=== PATIENT | male | born 1960 ===

== ENCOUNTER 2020-06-01 12:57 | Inpatient (IN) | payer BC, SELFPAY ==
[2020-06-01] VITALS (9 sets, daily range): BP systolic 171–204; BP diastolic 97–119; PULSE 61–78; RESP 12–21; TEMP 36.3–36.7; O2SAT 98–100
--- NOTE | ~2020-06-01 | XR_ITS ---
EXAMINATION: XR chest 1V portable 06/01/2020 13:25 INDICATION: CVA PROCEDURE: AP view of the chest COMPARISON: No prior studies for comparison. FINDINGS: The lungs are clear. The cardiomediastinal silhouette is within normal limits. There are no pleural effusions. There is no pneumothorax suspected. IMPRESSION: 1: NO ACUTE CARDIOPULMONARY DISEASE. Reviewed, dictated and finalized at location A.
--- NOTE | ~2020-06-01 | CT_ITS ---
EXAMINATION: CT brain wo con DATE: 06/01/2020 13:10 INDICATION: Stroke protocol. Left-sided weakness and dizziness. TECHNIQUE: Computed tomography (CT) of the head was performed without intravenous contrast. Sagittal and coronal reconstructions were performed. The mA was adjusted according to patient size. Iterative reconstruction technique was employed. The dose-length product was 681.00 mGy-cm. COMPARISON: None FINDINGS: Small old lacunar infarct at the right thalamus. No acute intracranial hemorrhage, acute infarction o r abnormal extra axial fluid collection. There is mild scattered white matter hypoattenuation consist ent with chronic small vessel ischemic disease. Ventricles are normal and symmetric. No mass/mass eff ect. The orbits, paranasal sinuses and mastoid air cells are normal. IMPRESSION: 1. Small old lacunar infarct at the right thalamus. No acute intracranial process. Per stroke protoco l Dr. Bruno discussed these findings with Dr. Bangura at 1:14 p.m.. Reviewed, dictated and finalized at location A. IMPRESSION: 1. Small old lacunar infarct at the right thalamus. No acute intracranial proce ss. Per stroke protocol Dr. Bruno discussed these findings with Dr. Bangura at 1:14 p.m..
--- NOTE | ~2020-06-01 | US_ITS ---
EXAMINATION: US venous doppler [facility] DATE: 06/03/2020 12:25 INDICATION: Lower limb pain and swelling TECHNIQUE: Hall scale images without and with compression and Doppler images of the bilateral lower e xtremity veins were obtained. COMPARISON: None FINDINGS: The right common femoral vein, profunda femoral vein, femoral vein, popliteal vein, peroneal trunk, p osterior tibial veins, and greater saphenous vein are patent. The left common femoral vein, profunda femoral vein, femoral vein, popliteal vein, peroneal trunk, po sterior tibial veins, and greater saphenous vein are patent. IMPRESSION: 1. Patent bilateral lower extremity veins. No evidence of deep venous thrombosis. Reviewed, dictated and finalized at location A. IMPRESSION: 1. Patent bilateral lower extremity veins. No evidence of deep venous thrombosi s.
--- NOTE | ~2020-06-01 | MR_ITS ---
EXAMINATION: MR brain/brain stem wo/w con DATE: 06/02/2020 08:24 INDICATION: Left-sided weakness TECHNIQUE: Magnetic resonance imaging (MRI) of the brain and brainstem was performed without and with 18 mL Multihance intravenous contrast. Sequences included sagittal and axial T1-weighted SE, axial d iffusion-weighted FS SE, axial T2*-weighted GRE, axial T2-weighted FLAIR, and axial T2-weighted FSE. Postcontrast axial and coronal T1-weighted SE was obtained. Apparent diffusion coefficient (ADC) maps were created. COMPARISON: CT studies dated 06/01/2020 FINDINGS: Small region of restricted diffusion consistent with acute lacunar infarct centered in the right post erior capsule extending to the immediately adjacent right thalamus and posterior aspect of the lentif orm nucleus. This lies immediately along side an earlier tiny right thalamic old lacunar infarct. The re are a couple additional small old lacunar infarcts at the left thalamus and in the white matter al alana the lateral side of the occipital horn of the left lateral ventricle. Additional equivocal small focus of restricted diffusion equivocal for a second small acute lacunar infarct at the right cerebel lar peduncle. No intracranial hemorrhage or abnormal intracranial mass lesion. There are scattered ar eas of nonspecific increased T2-weighted signal intensity in the cerebral white matter, predominantly involving the deep and periventricular white matter. There are no intraparenchymal signal abnormalit ies seen on the other pulse sequences. The ventricles are symmetric and normal in size. There are no abnormal extra-axial fluid collections. Flow voids are seen in the cerebral arteries on the T2-weight ed sequences consistent with their expected patency. Mucosal thickening in the bilateral ethmoid and maxillary sinuses. Visualized orbits and soft tissues are unremarkable. There are no areas of abnorma l enhancement on the post contrast images. IMPRESSION: 1. Acute infarct at the posterior limb of the right internal capsule and immediately adjacent right l entiform nucleus and thalamus. 2. Equivocal second small acute lacunar infarct at the right cerebellar peduncle. 3. 3 additional old lacunar infarcts in the bilateral thalami and left parietal periventricular white matter and additional mild scattered white matter T2 hyperintensity consistent with chronic small ve ssel ischemic disease. Reviewed, dictated and finalized at location A. IMPRESSION: 1. Acute infarct at the posterior limb of the right internal capsule and immedi ately adjacent right lentiform nucleus and thalamus. 2. Equivocal second small acute lacunar infarct at the right cerebellar peduncl e. 3. 3 additional old lacunar infarcts in the bilateral thalami and left parietal periventricular white matter and additional mild scattered white matter T2 hyp erintensity consistent with chronic small vessel ischemic disease.
--- NOTE | ~2020-06-01 | CT_ITS ---
EXAMINATION: CTA brain carotid EXAM DATE: 06/01/2020 14:17 INDICATION: L sided hemiparesis. Dizziness. TECHNIQUE: Spiral CTA of the carotid arteries was performed with intravenous injection 100 cc of Omn ipaque 350. Axial, coronal, sagittal reformatted images reviewed. Additional reformatted images crea veronika on dedicated 3-D workstation. NASCET comparable standard used to assess the degree of arterial s tenosis. Spiral CT angiogram cerebral arteries performed with the same intravenous injection of cont rast. Source images of the brain CTA transferred to dedicated workstation for 3-D rotational image cr eation. Coronal, sagittal maximum intensity pixel images also reviewed. The dose-length product (DL P) for this examination was 1232.73 mGy-cm. The exposure was tailored according to patient size, an d iterative reconstruction (ASIR) was used as additional dose reduction technique. Correlation is mad e to noncontrast head CT earlier same day. FINDINGS: There is mild bilateral carotid siphon arterial sclerosis with 0% stenosis bilaterally. The vertebral arteries are codominant. Carotid siphons are unremarkable. There is right-sided posterior communicating artery dominant posterior cerebral artery. There is no carotid or vertebral basilar arterial dissection or fibromuscular dysplasia. There is a 2 mm aneurysm at the distal aspect of the left carotid siphon, versus infundibulum to a ti ny posterior communicating artery. There is symmetric cerebral artery arborization. The sagittal, tra nsverse and sigmoid sinuses enhance normally, no venous sinus thrombosis. Internal cerebral veins als o enhance normally. There is punctate old right thalamic lacunar infarction. IMPRESSION: 1. 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 Consider 1-2 year follow-u p CTA brain. 2. Mild bilateral carotid bulb plaque, 0% stenosis bilaterally. 3. No acute carotid or intracranial findings. 4. Punctate old right thalamic lacunar infarction. Reviewed, dictated and finalized at location A. IMPRESSION: 1. 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 Cons ider 1-2 year follow-up CTA brain. 2. Mild bilateral carotid bulb plaque, 0% stenosis bilaterally. 3. No acute carotid or intracranial findings. 4. Punctate old right thalamic lacunar infarction.
--- NOTE | 2020-06-01 13:10 | ECG_ITS ---
Measurements Intervals [place] Rate: 72 P: 53 ID: [id number] QRS: -8 QRSD: 101 T: 34 QT: 391 QTc: 428 Interpretive Statements SINUS RHYTHM VOLTAGE CRITERIA FOR LVH BORDERLINE ST ABNORMALITY- ANTEROLATERAL LEADS BASELINE ARTIFACT- I, II, III BORDERLINE ECG Electronically Signed On 06-01-2020 13:22:43 CDT by Rasta Tan D.O.
[2020-06-01 13:23] LABS: Glucose Point of Care 82 (65-105)
--- NOTE | 2020-06-01 13:36 | ED.NEUROSD ---
HPI - Neuro Symptoms/Deficit General Chief Complaint: Neuro Symptoms/Deficit Stated Complaint: Possible stroke? Time Seen by Provider: 06/01/20 13:09 Source: RN notes reviewed History of Present Illness HPI Narrative: Patient presents emergency department from home for left-sided weakness. Patient states he went to bed at 9 PM normal last night. He states that this a.m. at 8 AM he awoke states that that time he had felt weakness in his left leg and left arm he had had trouble using his left hand as he dropped the lid to his water bottle he states he continued to have some weakness on the left side states he did take to 81 mg aspirins at home he denies any vision changes numbness chest pain shortness of breath nausea vomiting diarrhea or any other symptoms Related Data Home Medications Medication Instructions Recorded Confirmed allopurinol 06/01/20 Allergies Allergy/AdvReac Type Severity Reaction Status Date / Time No Known Allergies Allergy Verified 06/01/20 13:14 Review of Systems Review of Systems: Narrative: Gen.: Denies fevers or chills Eyes: Denies eye pain or visual change ENT: Denies congestion Respiratory: Denies shortness of breath or cough CV: Denies chest pain or palpitations GI: Denies abdominal pain nausea, emesis or diarrhea Musculoskeletal: Denies back pain or muscle pain Neuro: See HPI and Skin: Denies rash Except as documented, all other systems reviewed and negative [facility] Past Medical History Medical History (Updated 06/01/20 @ 15:52 by Wali Bangura DO) Patient denies significant medical history Social History Social History Smoking status: Never smoker Alcohol intake: current Exam Narrative: Exam Narrative: APPEARANCE: No acute distress, nontoxic, resting in bed HEENT: Normocephalic, atraumatic, OMM, TMs clear bilaterally EYES: PERRL, EOMI NECK: Supple, nontender, full range of motion without pain, no meningismus RESPIRATORY: No respiratory distress, clear to auscultation bilaterally with no rhonchi wheezing or rales CARDIOVASCULAR: RRR s murmur ABDOMINAL: Soft, nontender, nondistended MUSCULOSKELETAL: Moves all extremities. No clubbing, cyanosis or edema. NEURO: A and O ?3, following commands, speech normal, mild left facial droop, muscle strength 5 out of 5 bilateral upper and lower extremities, mild left pronator drift SKIN:: Warm, dry. Normal Color PSYCHIATRIC: Normal affect/mood Course Course Emergency Course: Discussed with Dr. Mazariegos presentation work-up recommends no further anticoagulation of the 2 baby aspirin as the patient took prior to arrival recommend small decrease of the patient's blood pressure down to approximately 150 systolic Discussed with TRIPP Walsh presentation work-up agrees with admission at this time discussed the patient's current blood pressure 172/100 at this time will start lisinopril 5 mg to gently bring down blood pressure Discussed with patient and family results of workup and diagnosis. Discussed need for admission. Patient and family understand and agree to current treatment plan Vital Signs Vital signs: Vital Signs Temperature 97.8 F 06/01/20 13:00 Pulse Rate 74 06/01/20 13:00 Respiratory Rate 16 06/01/20 13:00 Blood Pressure 204/113 H 06/01/20 13:00 Pulse Oximetry 100 06/01/20 13:00 Temperature 97.8 F 06/01/20 13:00 Pulse Rate 61 06/01/20 15:24 Respiratory Rate 12 06/01/20 15:24 Blood Pressure 172/102 H 06/01/20 15:24 Pulse Oximetry 99 06/01/20 15:24 MDM - Neuro Symptoms/Deficit MDM Narrative Medical decision making narrative: Patient presents with left-sided weakness last known normal was 9 PM yesterday May 31 woke up with symptoms at a.m. this morning mild left pronator drift mild left facial droop CVA at this time discussed with neurology will admit for MRI gently bring down blood pressure with lisinopril patient took aspirin pr
[2020-06-01 14:04] LABS: Basophils Percent Auto 0.7 % (0.2-1.2); Eosinophils Absolute Auto 0.1 K/mm3 (0-0.3); Eosinophils Percent Auto 2.6 % (0-4.4); Hematocrit 41.7 % (42.0-52.0); Hemoglobin 14.3 g/dL (14.0-18.0); Immature Granulocyte Absolute 0.03 K/mm3 (0.00-0.031); Immature Granulocyte Percent A 0.6 % (0-0.5); Lymphocytes Absolute Auto 0.65 K/mm3 (0.9-3.2); Mean Corpuscular HGB Conc 34.3 g/dl (32-36); Mean Corpuscular Hemoglobin 31.3 pg (26-34); Mean Corpuscular Volume 91.2 fl (80-100); Mean Platelet Volume 10.8 fl (7.4-10.4); Monocytes Absolute Auto 0.5 K/mm3 (0.1-0.6); Monocytes Percent Auto 8.7 % (2.6-8.5); Neutrophils Absolute Auto 4.1 K/mm3 (1.3-6.7); Neutrophils Percent Auto 75.4 % (45.5-73.1); Platelet Count Result 200 k/mm3 (150-375); Red Blood Count 4.57 M/mm3 (4.6-6.20); Red Cell Distribution Width 13.2 % (11.5-14.5); White Blood Count 5.4 K/mm3 (4.5-10.0)
[2020-06-01 14:08] LABS: Estimated CRCL calculation 70 ml/min; Estimated Glomerular Filt Rate > 60
[2020-06-01 14:15] LABS: Anion Gap 7 mmol/L (8-16); Blood Urea Nitrogen 13 mg/dL (9-20); Calcium 9.8 mg/dL (8.4-10.2); Carbon Dioxide 28 mmol/L (22-30); Chloride 106 mmol/L (98-107); Estimated CRCL calculation 70 ml/min; Estimated Glomerular Filt Rate > 60; Glucose 86 mg/dL (75-110); Potassium 3.9 mmol/L (3.4-5.0); Sodium 141 mmol/L (137-145)
[2020-06-01 14:16] LABS: INR 0.9; Prothrombin Time 12.7 Seconds (11.1-14.7)
[2020-06-01 14:17] LABS: Partial Thromboplastin Time 27.2 SECONDS (22.3-36.8)
[2020-06-01 14:28] LABS: Troponin I < 0.012 ng/mL (0.000-0.034)
[2020-06-01] MEDS: lisinopriL 5 MG TABLET PO (16:22)
--- NOTE | 2020-06-01 16:40 | ADMGEN ---
This patient, Gucci Xiong, was admitted to Medical Room 253-01. Patient/family oriented to hospital policies and general routines including ID bracelet, bed and alarms, visiting hours, pain management, procedures, bathroom and other care routines, personal items, smoking policy, room service/diet, and visiting hours. Information on how to activate the Rapid Response Team has been discussed. Patient/Family are encouraged to report perceived risks to care and to ask questions if they do not understand what they are told or what they should do.
--- NOTE | 2020-06-01 18:43 | PC.NURSE ---
Registered Dental Hygienist called Chel ALMAGUER and made aware Blood pressure remains elevated. She will come see pt.
[2020-06-01 19:32] LABS: Troponin I < 0.012 ng/mL (0.000-0.034)
--- NOTE | 2020-06-01 20:56 | PM.IMHP ---
H&P: HPI History of Present Illness Date/Time: 06/01/20 20:56 this is a 59-year-old male patient who has no prior history of CVA or hypertension. He stated that any time that he goes to his doctor is slightly elevated and then they recheck his blood pressure and it usually comes down. The patient came to the emergency room today to be evaluated for some left-sided weakness. He went to bed last night at 9:00 p.m. and was his normal usual self. The patient stated that he woke up this morning at 8:00 a.m. he felt some weakness in his left leg and left arm. He felt like he had some drifting to the left side. He was holding the lid of his water bottle and he dropped it. He denied any difficulty speaking or any problems with his vision. He was not sure if he was having a stroke or not. However the patient started to type because he works at home now, when he thought to himself that he was not using his left arm as usual. His blood pressure was 172/102. Patient was started on lisinopril. His systolic blood pressure dropped down to 150 but is diastolic remained elevated. Head and neck CTA was read as left posterior communicating artery infundibulum versus 2 mm aneurysm. Consider 1-2 year follow-up CT brain. Mild bilateral carotid bulb plaque 0% stenosis bilaterally. No acute carotid or intracranial findings. Punctate old right thalamus lacunar infarction. Head CT was read as small old lacunar infarct at the right thalamus. No acute intracranial process. The patient was given an aspirin in the emergency room. Date of service of 06/01/2020. Chief Complaint: Left-sided weakness Review of Systems Review of Systems: All systems reviewed & are unremarkable except as noted in HPI and below Constitutional: Constitutional: Reports as per HPI and Reports no additional constitutional complaints Eyes: Eyes: Reports as per HPI and Reports no additional eye complaints ENT: Reports system reviewed and no additional complaints, except as documented and Reports Normal hearing present Cardiovascular: Cardiovascular: Reports no additional cardiovascular complaints Respiratory: Respiratory: Reports no additional respiratory complaints and Reports no additional respiratory complaints Gastrointestinal: Gastrointestinal: Reports as per HPI and Reports no additional gastrointestinal complaints Musculoskeletal: Musculoskeletal: Reports no additional musculoskeletal complaints Integumentary/Breasts: Skin/Breast: Reports system reviewed and no additional complaints, except as docu and Reports as per HPI Neurologic: Reports system reviewed and no additional complaints, except as documented, Reports as per HPI and Reports Normal hearing present Psychiatric: Psychiatric: Reports no additional psychiatric complaints and Reports as per HPI Endocrine: Endocrine: Reports no additional endocrine complaints Hematologic/Lymphatic: Hematologic/Lymphatic: Reports no additional hematologic/lymphatic complaints Allergic/Immunologic: Allergic/Immunologic: Reports no additional allergic/immunologic complaints [facility] Past Medical History Medical History (Updated 06/01/20 @ 21:05 by Chel Polanco NP) Elevated BP without diagnosis of hypertension Gout Patient denies significant medical history Psoriasis Surgical History Surgical History H/O arthroscopic knee surgery H/O hernia repair Family History Family History (Updated 06/01/20 @ 21:08 by Chel Polanco NP) Mother due to natural causes Father due to natural causes Sibling Cirrhosis Social History Social History (Updated 06/01/20 @ 21:08 by Chel Polanco NP) Social History: The patient is and lives with his . She is a durable power senior attorney. He has a set of twins ( a daughter and a son). 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 The patient used to smoke cigarettes from the age of 14 till 29 and then once again when h
[2020-06-01 22:51] LABS: Troponin I < 0.012 ng/mL (0.000-0.034)
[2020-06-02] VITALS (10 sets, daily range): BP systolic 167–190; BP diastolic 80–114; PULSE 64–95; RESP 14–20; TEMP 36.2–36.9; O2SAT 96–100
--- NOTE | 2020-06-02 | ECHO_ITS ---
Patient Info Name: Gucci Xiong Age: 59 years : 1960 Gender: Male Ht: 72 in Wt: 198 lbs BSA: 2.15 m2 HR: 73 bpm BP: 171 / 97 mmHg Technical Quality: Good Exam Date: 06/02/2020 10:12 AM Exam Location: [facility] Patient Status: Inpatient Admit Date: 06/01/2020 Staff Ordering Physician: Daylin Amaya PA-C Card Tender: Fabrice Del Toro RDCS, RT Attending Provider: Daylin Amaya PA-C Referring Physician: Jose Luis ROBERTSON; Exam Type: CA echo dop bubble study w con Study Info Indications I63.239 - Cerebral infarction due to unspecified occlusion or stenosis of unspecified carotid arteries Strain analysis performed. Complete two-dimentional, color flow and Doppler transthoracic echocardiogram is performed with agitated saline and with contrast to opacify the left ventricle and to improve the delineation of the left ventricle endocardial borders. Summary 1. Left ventricular chamber dimension is mildly enlarged. 2. Definity contrast administered improved wall motion interpretation. 3. Left ventricular systolic function is normal, estimated at 55-60%. 4. There is mildly increased left ventricular wall thickness. 5. The left ventricular diastolic function is grade I diastolic dysfunction. 6. E/e' 7 is not elevated. 7. Global longitudinal strain is abnormal at -15.3%. 8. There is mild aortic valve sclerosis. 9. There is mild aortic valve regurgitation. Left Ventricle E/e' 7 is not elevated. Global longitudinal strain is abnormal at -15.3%. Definity contrast administered improved wall motion interpretation. Left ventricular chamber dimension is mildly enlarged. Left ventricular systolic function is normal, estimated at 55-60%. There is mildly increased left ventricular wall thickness. The left ventricular diastolic function is grade I diastolic dysfunction. Right Ventricle Right ventricular chamber dimension is normal. Right ventricular systolic function is normal. Left Atria Left atrial chamber dimension is normal. Right Atria Right atrial chamber dimension is normal. Atrial Septum Agitated saline injection with and without valsalva maneuver without shunt. Intact interatrial septum visualized by agitated saline imaging. Aortic Valve The aortic valve is trileaflet. There is mild aortic valve sclerosis. There is no aortic valve stenosis. There is mild aortic valve regurgitation. Pulmonic Valve There is no pulmonic regurgitation. Mitral Valve There is no mitral valve stenosis. There is no mitral valve regurgitation. Tricuspid Valve There is no tricuspid valve regurgitation. Pericardium/Pleural There is no pericardial effusion. Inferior Vena Cava Normal inferior vena cava with >50% collapse upon inspiration consistent with normal right atrial pressure, 5 mmHg. Aorta The aortic root size at the sinus of Valsalva is normal. Left Ventricular Outflow Tract Name Value Normal LVOT 2D LVOT Diameter 2.5 cm Mitral Valve Name Value Normal MV Doppler
[2020-06-02 05:49] LABS: Basophils Percent Auto 0.8 % (0.2-1.2); Eosinophils Absolute Auto 0.2 K/mm3 (0-0.3); Eosinophils Percent Auto 3.8 % (0-4.4); Hematocrit 38.6 % (42.0-52.0); Hemoglobin 13.3 g/dL (14.0-18.0); Immature Granulocyte Absolute 0.01 K/mm3 (0.00-0.031); Immature Granulocyte Percent A 0.3 % (0-0.5); Lymphocytes Absolute Auto 0.74 K/mm3 (0.9-3.2); Lymphocytes Percent Auto 18.7 % (18.3-44.2); Mean Corpuscular HGB Conc 34.5 g/dl (32-36); Mean Corpuscular Hemoglobin 31.4 pg (26-34); Mean Platelet Volume 10.2 fl (7.4-10.4); Monocytes Absolute Auto 0.4 K/mm3 (0.1-0.6); Monocytes Percent Auto 9.8 % (2.6-8.5); Neutrophils Absolute Auto 2.6 K/mm3 (1.3-6.7); Neutrophils Percent Auto 66.6 % (45.5-73.1); Platelet Count Result 159 k/mm3 (150-375); Red Blood Count 4.24 M/mm3 (4.6-6.20); Red Cell Distribution Width 13.1 % (11.5-14.5)
[2020-06-02 06:05] LABS: Anion Gap 4 mmol/L (8-16); Blood Urea Nitrogen 11 mg/dL (9-20); Calcium 9.3 mg/dL (8.4-10.2); Carbon Dioxide 29 mmol/L (22-30); Chloride 107 mmol/L (98-107); Estimated CRCL calculation 70 ml/min; Estimated Glomerular Filt Rate > 60; Glucose 98 mg/dL (75-110); Potassium 4.1 mmol/L (3.4-5.0); Sodium 140 mmol/L (137-145)
[2020-06-02] MEDS: allopurinoL 300 MG TABLET PO (08:34)
[2020-06-02] MEDS: ASPIRIN 81 MG CHEWABLE TABLET PO (08:34)
[2020-06-02] MEDS: lisinopriL 10 MG TABLET PO ×2 (10:14→12:48)
[2020-06-02] MEDS: ATORVASTATIN 40 MG TABLET PO (10:14)
[2020-06-02 10:45] LABS: Hemoglobin A1C 4.7 % (<5.7)
[2020-06-02] MEDS: PERFLUTREN LIPID MICROSPHERES 1.5 ML VIAL DILUTED TO 10 ML TOTAL VOLUME IV PUSH (11:04)
--- NOTE | 2020-06-02 12:24 | PM.IMPN ---
Progress Note: A&P Assessment and Plan (1) Cerebrovascular accident: Code(s): I63.9 - Cerebral infarction, unspecified Status: Acute Assessment and Plan: He reported onset of left upper extremity and left lower extremity weakness when he woke up at 7:00AM the morning of 06/01. He took two aspirin at home. Last known normal was 5:00AM. He presented to the emergency department at 1:00PM. TPA was not given due to symptom onset >4.5hr prior to presentation. Neurology was consulted from the emergency department. STAT CT brain demonstrated small old lacunar infarct at the right thalamus. CTA head and neck demonstrated left posterior communicating artery infundibulum vs. 2mm aneurysm, mild bilateral carotid bulb plaque with 0% stenosis, and punctate old right thalamic lacunar infarct. Brain MRI demonstrates acute infarct at the posterior limb of the right internal capsule and immediately adjacent right lentiform nucleus and thalamus. There is also equivocal second small acute lacunar infarct at the right cerebellar peduncle. There are also 3 additional old lacunar infarcts in the bilateral thalami and left parietal periventricular white matter with mild scattered T2 hyperintensity consistent with chronic small vessel ischemic disease. Telemetry demonstrates sinus rhythm and occasional sinus bradycardia. No arrhythmias noted. Echocardiogram with bubble study demonstrates intact interatrial septum/no shunt. Hemoglobin A1c 4.5%. His symptoms continue to improve. Discussed with Dr. Mazariegos and the etiology is most likely thrombosis due to longstanding hypertensive disease given imaging findings. There is no evidence of large vessel disease. Management per neurology Continue ASA EC 81mg Atrovastatin 40mg initiated. Check lipid panel. Continue telemetry monitoring Antihypertensive therapy initiated today given he it is now >24hr after acute phase. Discussed with Dr. Mazariegos who expresses Continue PT/OT (2) Elevated BP without diagnosis of hypertension: Code(s): R03.0 - Elevated blood-pressure reading, without diagnosis of hypertension Status: Acute Assessment and Plan: The patient believes that his blood pressures have been running high for awhile. He was not on antihypertensives prior to admission. Blood pressures are markedly elevated. Permissive hypertension was allowed for the first 24 hours following acute CVA. Begin lisinopril, he received 20mg today. Plan to up-titrate as indicated. Hydralazine is available PRN with parameters (3) Gout: Code(s): M10.9 - Gout, unspecified Status: Chronic Assessment and Plan: Chronic with no acute joint inflammation. 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 He will need neurology follow-up and repeat CTA head/neck in 1-2 years for monitoring Blood pressure control is imperative Subjective Date/time seen: 06/02/20 12:24 Mr. Xiong is a 59 y.o. male with PMH significant for gout who is seen in follow-up for acute CVA. He is doing better today with all neurologic symptoms improving. He still notes some residual left upper and left lower extremity weakness but his strength is improving. He notes mild drift of his left arm when he is not focused on what he is doing. He also notes impaired balance but he thinks is also improving. He is ambulating okay but does have to pay attention to his left foot when he walks. He denies vision change, speech change, and paresthesias. He denies headache, dizziness, and lightheadedness. He denies fever and chills. He denies chest pain and pressure. He denies palpitations. He has no abdominal pain. Bowels are regular. Review
[2020-06-02] MEDS: hydrALAZINE HCL 20 MG/ML VIAL 5 MG IV PUSH (12:48)
[2020-06-02] MEDS: hydrALAZINE HCL 20 MG/ML VIAL 10 MG IV PUSH ×2 (14:28→20:54)
--- NOTE | 2020-06-02 14:29 | WPDNEURCNPN ---
Assessment and Plan Assessment and plan (1) Psoriasis: Code(s): L40.9 - Psoriasis, unspecified Status: Chronic (2) Elevated BP without diagnosis of hypertension: Code(s): R03.0 - Elevated blood-pressure reading, without diagnosis of hypertension Status: Acute (3) Gout: Code(s): M10.9 - Gout, unspecified Status: Chronic (4) Cerebrovascular accident: Code(s): I63.9 - Cerebral infarction, unspecified Status: Acute Additional Plan Bihemispheric strokes subcortical in location particularly involving the right internal capsule posterior limb which is acute in nature along with the adjacent right lentiform nucleus and thalamus but in addition to 3 a dish in old lacunar infarcts in the bilateral thalami and left parietal periventricular white matter suggesting the possibility of long-term antihypertensive disease, echocardiogram consistent with the mild aortic valvular sclerosis and regurgitation Thatch receiving aspirin 81 mg daily in addition to lisinopril 10 mg daily and atorvastatin 40 mg daily additionally he gets hydralazine IV p.r.n. treatment will be continued as such Consult date: 06/02/20 Time Seen: 14:15 HPI: Gucci Xiong is a 59 year old male has been admitted to the hospital through the emergency room for the complaints of left-sided weakness. Reportedly he went to bed last night at 9:00 p.m. and was in his normal usual self. He woke up in the morning at 8:00 a.m. felt somewhat weaker in his left lower extremity and left upper extremity. And was also reported lead drifting to the left side. 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 Past history is consistent with the history of hypertension arthroscopic knee surgery hernia repair. Evaluation up until now included the routine lab studies which were unremarkable and MRI of the brain revealed acute infarct at the posterior limb of the right internal capsule adjacent to the right lentiform nucleus and thalamus in addition to 2nd small acute lacunar infarct at the right cerebellar peduncle and [address] old lacunar infarcts in the bilateral thalami and left parietal periventricular white matter Review of Systems Review of Systems: All systems reviewed & are unremarkable except as noted in HPI and below PMFSH Past Medical History Medical History Elevated BP without diagnosis of hypertension Gout Patient denies significant medical history Psoriasis Surgical History Surgical History H/O arthroscopic knee surgery H/O hernia repair Family History Family History Mother due to natural causes Father due to natural causes Sibling Cirrhosis Social History Social History Social History: The patient is and lives with his . She is a durable power civil rights attorney. He has a set of twins ( a daughter and a son). 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 The patient used to smoke cigarettes from the age of 14 till 29 and then once again when he is 34 but has not smoked since. He drinks about a 12 pack of beer a week. The patient desires to be a full code. No marijuana or illicit drugs. Smoking status: Former smoker Alcohol intake: current Drinks per week: 12 Substance use: never Gender identity (if verbalized by the patient): Male Sexual Orientation (if Verbalized by t
[2020-06-02] MEDS: ACETAMINOPHEN 325 MG TABLET 650 MG PO (18:19)
[2020-06-03] VITALS (21 sets, daily range): BP systolic 137–198; BP diastolic 78–108; PULSE 67–131; RESP 16–18; TEMP 36–36.5; O2SAT 97–99
[2020-06-03] MEDS: ACETAMINOPHEN 325 MG TABLET 650 MG PO ×2 (00:43→14:28)
--- NOTE | 2020-06-03 01:44 | PCRCNOTE ---
patient refused the apnea study once the set up was complete; pt stated that it was too much for him to handle tonight; RN was notified
[2020-06-03] MEDS: hydrALAZINE HCL 20 MG/ML VIAL 10 MG IV PUSH ×3 (04:20→14:29)
[2020-06-03 05:18] LABS: Alanine Aminotransferase 28 U/L (4-50); Albumin Level 4.4 g/dL (3.5-5.1); Alkaline Phosphatase 76 U/L (38-126); Anion Gap 7 mmol/L (8-16); Aspartate Amino Transferase 26 U/L (17-59); Bilirubin,Total 0.7 mg/dL (0.2-1.3); Blood Urea Nitrogen 11 mg/dL (9-20); Calcium 9.7 mg/dL (8.4-10.2); Carbon Dioxide 25 mmol/L (22-30); Chloride 108 mmol/L (98-107); Cholesterol 179 mg/dL (0-200); Estimated CRCL calculation 84 ml/min; Estimated Glomerular Filt Rate > 60; Glucose 110 mg/dL (75-110); HDL Direct 43 mg/dL; Potassium 3.6 mmol/L (3.4-5.0); Sodium 140 mmol/L (137-145); Triglycerides 137 mg/dL (<150)
[2020-06-03 05:29] LABS: LDL Cholesterol Direct 104 mg/dL
[2020-06-03 05:35] LABS: Iron 91 ug/dL (49-181)
[2020-06-03 05:45] LABS: Percent Iron Saturation 25 % (20-50)
[2020-06-03 06:26] LABS: Folic Acid > 20.0 ng/mL (2.76->20)
[2020-06-03] MEDS: lisinopriL 10 MG TABLET 30 MG PO (08:32)
[2020-06-03] MEDS: allopurinoL 300 MG TABLET PO (08:32)
[2020-06-03] MEDS: ATORVASTATIN 40 MG TABLET PO (08:32)
[2020-06-03] MEDS: ASPIRIN 81 MG ENTERIC TABLET PO (08:32)
[2020-06-03] MEDS: METOPROLOL TARTRATE 25 MG TABLET PO ×2 (08:33→20:02)
--- NOTE | 2020-06-03 08:52 | PM.IMPN ---
Progress Note: A&P Assessment and Plan (1) Cerebrovascular accident: Code(s): I63.9 - Cerebral infarction, unspecified Status: Acute Assessment and Plan: He reported onset of left upper extremity and left lower extremity weakness when he woke up at 7:00AM the morning of 06/01. He took two aspirin at home. Last known normal was 5:00AM. He presented to the emergency department at 1:00PM. TPA was not given due to symptom onset >4.5hr prior to presentation. Neurology was consulted from the emergency department. STAT CT brain demonstrated small old lacunar infarct at the right thalamus. CTA head and neck demonstrated left posterior communicating artery infundibulum vs. 2mm aneurysm, mild bilateral carotid bulb plaque with 0% stenosis, and punctate old right thalamic lacunar infarct. Brain MRI demonstrates acute infarct at the posterior limb of the right internal capsule and immediately adjacent right lentiform nucleus and thalamus. There is also equivocal second small acute lacunar infarct at the right cerebellar peduncle. There are also 3 additional old lacunar infarcts in the bilateral thalami and left parietal periventricular white matter with mild scattered T2 hyperintensity consistent with chronic small vessel ischemic disease. Telemetry demonstrates sinus rhythm and occasional sinus bradycardia yesterday. He had an episode of sinus tachycardia early this AM which was self-limited. No arrhythmias noted. Echocardiogram with bubble study demonstrates intact interatrial septum/no shunt. Hemoglobin A1c 4.5%. Lipid panel demonstrates LDL 104, HDL 43, triglycerides 137. His symptoms continue to improve. Discussed with Dr. Mazariegos and the etiology is most likely thrombosis due to longstanding hypertensive disease given imaging findings. There is no evidence of large vessel disease. Management per neurology Continue ASA EC 81mg Atrovastatin 40mg initiated. Goal LDL <70. He will need outpatient follow-up. Continue telemetry monitoring Antihypertensive therapy initiated. Patient still not at goal blood pressure but improving. Will monitor overnight for better BP control. Discussed with Dr. Mazariegos who advises that BP goal is <150/90. Continue PT/OT (2) Elevated BP without diagnosis of hypertension: Code(s): R03.0 - Elevated blood-pressure reading, without diagnosis of hypertension Status: Acute Assessment and Plan: The patient believes that his blood pressures have been running high for awhile. He was not on antihypertensives prior to admission. Permissive hypertension was allowed for the first 24 hours following acute CVA. He is now >48 hr from acute CVA. Blood pressures are markedly elevated but slowly improving. Most recent 160/80. Continue lisinopril, increased to 30mg. Follow trend and may initiate an additional agent tomorrow based on trend. Metoprolol added for sinus tachycardia but may not be needed long-term. Will re-evaluate. Hydralazine is available PRN with parameters (3) Gout: Code(s): M10.9 - Gout, unspecified Status: Chronic Assessment and Plan: Chronic with no acute joint inflammation. 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 He will need neurology follow-up and repeat CTA head/neck in 1-2 years for monitoring Blood pressure control is imperative (5) Sinus tachycardia: Code(s): R00.0 - Tachycardia, unspecified Status: Acute Assessment and Plan: He had a self-limited episode of sinus tachycardia this morning at 5AM which resolved without treatment. Clinical Nursing Coordinator was notified and placed orders for metoprolol tartrate to begin at 9AM. He related that he was very a
[2020-06-03] MEDS: CYANOCOBALAMIN INJ 1,000 MCG/ML VIAL 1000 MCG IM (08:58)
--- NOTE | 2020-06-03 10:28 | WPDNEUROPN ---
Progress Note: A&P Assessment and Plan (1) Cerebrovascular accident: Code(s): I63.9 - Cerebral infarction, unspecified Status: Acute (2) Hypertension: Code(s): I10 - Essential (primary) hypertension Status: Acute Additional Plan neurologically treatment as such but need the better control of blood pressure for which patient stay here today and further care will be accordingly Review of Systems Review of Systems: All systems reviewed & are unremarkable except as noted in HPI and below Exam Const: General: cooperative, comfortable, no acute distress, alert and awake Nutritional Appearance: average body habitus Limitations: no limitations HENMT: Head: normocephalic Ears: hearing grossly normal bilaterally General nose exam: Normal external nose present Face and sinus: normal facial exam Mouth: Yes Normal oral and palatal mucosa present Eyes: General: appearance normal, both eyes and all related structures Neck: Neck: full ROM Resp: Auscultation: clear to auscultation bilaterally Cardio: Rate: regular rate Rhythm: regular rhythm GI: Auscultation: normal bowel sounds Skin: General skin exam: no rashes or lesions noted Neuro: General: patient oriented x3 Cranial nerves: Yes CN's II-XII intact bilaterally, Yes Equal, round and reactive pupils present, Yes Normal accommodation reflex present, Yes Nystagmus not present, Yes Normal facial strength present, Yes Midline tongue present, Yes Symmetric palate elevation present, Yes Normal hearing present, Yes Ability to bilaterally rotate head present and Yes Ability to bilaterally elevate shoulders present Cognition (Neuro): normal cognition Speech: normal speech Gait exam (Neuro): Ataxic gait present Motor exam (neuro): Pronator motor function not present and No asterixis Sensory Exam: normal sensation Deep tendon reflexes (DTR's): Right triceps reflex intensity grade: 2+, Left triceps reflex intensity grade: 2+, Rt Biceps (C5, C6): 2+, Left biceps reflex intensity grade: 2+, Right brachioradialis reflex intensity grade: 2+, Left brachioradialis reflex intensity grade: 2+, Right patellar reflex intensity grade: 2+, Left patellar reflex intensity grade: 2+, Right ankle reflex intensity grade: 2+ and Left ankle reflex intensity grade: 2+ Plantar Reflex Responses: upgoing (positive Babinski): bilateral Coordination: [id number] test normal Psych: Appearance: grossly normal Objective Data Vital Signs Vital Signs: Vital Signs - 24 hr 06/02/20 12:00 06/02/20 12:30 06/02/20 14:00 Temperature 36.7 C 36.2 C L Pulse Rate 80 73 84 Respiratory Rate 14 18 Blood Pressure 186/114 H 176/108 H Pulse Oximetry 100 98 06/02/20 16:00 06/02/20 18:00 06/02/20 20:00 Temperature 36.9 C 36.2 C L Pulse Rate 92 87 73 Respiratory Rate 16 16 Blood Pressure 167/99 H 190/80 H Pulse Oximetry 99 97 06/03/20 00:00 06/03/20 04:00 06/03/20 05:26 Temperature 36.1 C L Pulse Rate 85 76 131 H Respiratory Rate 16 Blood Pressure 190/78 H Pulse Oximetry 99 06/03/20 05:30 06/03/20 05:56 06/03/20 06:03 Temperature 36.2 C L Pulse Rate 131 H 88 Respiratory Rate 16 Blood Pressure 164/102 H 196/84 H 188/80 H Pulse Oximetry 98 98 06/03/20 08:00 06/03/20 08:31 06/03/20 08:33 Temperature Pulse Rate 118 H 96 Respiratory Rate Blood Pressure 198/98 H Pulse Oximetry 06/03/20 09:54 Temperature Pulse Rate Respiratory Rate Blood Pressure 160/98 H Pulse Oximetry Intake/Output Intake/Output: Intake & Output 05/31/20 06/01/20 06/02/20 06/03/20 23:59 23:59 23:59 23:59 Intake Total 480 1770 200 Output Total 400 Balance 480 1370 200 Meds/Results Medications: Active Medications Generic Name Dose Route Start Last Admin Trade Name Freq PRN Reason Stop Dose Admin Acetaminophen 650 mg 06/02/20 18:11 06/03/20 00:43 Acetaminophen 325 Mg Tablet PO 650 mg Q6H PRN Administration Mild Pain (1-3) or
[2020-06-03 14:15] LABS: Magnesium 1.8 mg/dL (1.6-2.3)
[2020-06-03] MEDS: amLODIPine BESYLATE 5 MG TABLET PO (14:29)
[2020-06-04] VITALS (9 sets, daily range): BP systolic 149–164; BP diastolic 90–99; PULSE 69–90; RESP 18–21; TEMP 36.1–36.6; O2SAT 99–100; BMI 29.1
--- NOTE | 2020-06-04 02:29 | PCRCNOTE ---
Pt states conversation with [facility] orderer that it would be done after discharge as an outpatient and refused to have test done on the evening/night of 06/04/2020
[2020-06-04 05:47] LABS: Anion Gap 10 mmol/L (8-16); Blood Urea Nitrogen 12 mg/dL (9-20); Carbon Dioxide 24 mmol/L (22-30); Chloride 106 mmol/L (98-107); Estimated CRCL calculation 76 ml/min; Estimated Glomerular Filt Rate > 60; Glucose 106 mg/dL (75-110); Sodium 140 mmol/L (137-145)
[2020-06-04] MEDS: allopurinoL 300 MG TABLET PO (08:15)
[2020-06-04] MEDS: ASPIRIN 81 MG ENTERIC TABLET PO (08:15)
[2020-06-04] MEDS: amLODIPine BESYLATE 5 MG TABLET PO (08:15)
[2020-06-04] MEDS: lisinopriL 10 MG TABLET 30 MG PO (08:15)
[2020-06-04] MEDS: CYANOCOBALAMIN 1,000 MCG TABLET 1000 MCG PO (08:15)
[2020-06-04] MEDS: ATORVASTATIN 40 MG TABLET PO (08:15)
--- NOTE | 2020-06-04 13:31 | PM.DS ---
DS: Admitting Diagnosis Admitting Diagnosis Admitting Diagnosis: Left-sided weakness, Acute CVA DS: Discharge Diagnosis Discharge Diagnosis (1) Cerebrovascular accident: Code(s): I63.9 - Cerebral infarction, unspecified Status: Acute Assessment and Plan: Discharge Summary (Date of service 06/04/20): Mr. Xiong is a 59 y.o. male with PMH significant for gout who presented to the emergency department on 06/01/20 for the evaluation of left upper extremity and left lower extremity weakness. He noted some drift when hold his left arm outstretched and also dropped the lid of a water bottle he was holding. He also noticed that his balance was abnormal. He had no associated speech change, vision change, or sensory deficits. Symptoms were apparent when he woke up at 7:00AM the morning of 06/01. He took two aspirin at home. He reported that his last known normal was 5:00AM on 06/01. He was not sure if he was having a stroke or not so he did not proceed immediately to the emergency department. He started working from home and continued to notice difficulty including LUE weakness so he elected to proceed to the emergency department and presented there at approximately 1:00PM. TPA was not given due to symptom onset >4.5hr prior to presentation. Neurology was consulted from the emergency department and recommended a low dose of lisinopril for his hypertension. STAT CT brain demonstrated small old lacunar infarct at the right thalamus. CTA head and neck demonstrated left posterior communicating artery infundibulum vs. 2mm aneurysm, mild bilateral carotid bulb plaque with 0% stenosis, and punctate old right thalamic lacunar infarct. He will need follow-up CTA head/neck in 1-2 years for monitoring. He was admitted to the hospitalist service with neurology consultation. Brain MRI was read by radiology as acute infarct at the posterior limb of the right internal capsule and immediately adjacent right lentiform nucleus and thalamus. There was also equivocal second small acute lacunar infarct at the right cerebellar peduncle and 3 additional old lacunar infarcts in the bilateral thalami and left parietal periventricular white matter with mild scattered T2 hyperintensity consistent with chronic small vessel ischemic disease. High-intensity statin (atorvastatin 40mg) was initiated and ASA EC 81mg was continued per neurology recommendation. PT/OT was consulted and he did very well with PT/OT. He was monitored on telemetry which demonstrated sinus rhythm and occasional sinus bradycardia. He also had an episode of sinus tachycardia early the morning of 06/03 when he was anxious and exerting himself. No arrhythmias were observed. Echocardiogram with bubble study was performed and demonstrated intact interatrial septum/no shunt, mild LV chamber enlargement, normal LV systolic function with normal EF, mildly increased LV wall thickness, grade I diastolic dysfunction, mild aortic valve sclerosis, and mild aortic regurgitation. Hemoglobin A1c was 4.5%. Lipid panel demonstrated LDL 104, HDL 43, triglycerides 137. His blood pressures were markedly elevated above baseline and Dr. Mazariegos with [facility] felt that the most likely etiology for his acute right hemispheric ischemic stroke was longstanding hypertensive disease given imaging findings of small vessel ischemic disease and lacunar infarcts. There is no evidence of large vessel disease. Lisinopril was added and uptitrated and amlodipine was also initiated with marked improvement in his blood pressure. His left sided weakness improved daily. He will continue outpatient PT/OT and he was advised to monitor his blood pressure very closely and keep a log to review with Dr. Singh. His goal BP is <130/80. He reported that he felt nearly back to his baseline and was eager for discharge. Worrisome signs and symptoms which would warrant return to the emergency department were discussed and he verbalized understanding. He was discharged in hemodynamically stab
== END 2020-06-04 14:10 | disposition home or self-care (01) | DRG 65 ==
LOC: ANHED 15:52 → ANH2MED 16:15
PROVIDERS: Physician Assistant; Admitting Provider Family Medicine; Emergency Provider Emergency Medicine; PCP Internal Medicine; Visit Provider Internal Medicine
DX: I63.9 Cerebral infarction, unspecified (principal); G81.94 Hemiplegia, unspecified affecting left nondominant side; R29.810 Facial weakness; R26.89 Other abnormalities of gait and mobility; I10 Essential (primary) hypertension; M1A.9XX0 Chronic gout, unspecified, without tophus (tophi); R00.0 Tachycardia, unspecified; R93.89 Abnormal findings on diagnostic imaging of other specified body structures; E53.8 Deficiency of other specified B group vitamins; D64.9 Anemia, unspecified; R29.703 NIHSS score 3; L40.9 Psoriasis, unspecified; Z87.891 Personal history of nicotine dependence
CPT/HCPCS: 36415; 70450; 70496; 70498; 70553; 71045; 80048; 80053; 80061; 82607; 82728; 82746; 82948; 83036; 83540; 83550; 83735; 84443; 84484; 85025; 85610; 85730; 93005; 93970; 94762; 96374; 96375; 96376; 97161; 97165; 99285; A9270; A9577; C8929; G0378; J0360; J3420; Q9957; Q9967

== ENCOUNTER 2023-06-09 14:43 | Emergency (ER) | payer BC, SELFPAY | END 2023-06-09 14:45 | disposition left against medical advice (07) | PROVIDERS: PCP Internal Medicine | DX: Z53.21 Procedure and treatment not carried out due to patient leaving prior to being seen by health care provider (principal) | CPT/HCPCS: 99199 ==

== ENCOUNTER 2023-06-12 13:40 | Outpatient (CLI) | payer BC, SELFPAY ==
--- NOTE | ~2023-06-12 | CT_ITS ---
EXAMINATION: CT abdomen pelvis w con DATE: 06/12/2023 14:29 INDICATION: Mid abdominal pain for 3 weeks, bloating, nausea. TECHNIQUE: Computed tomography (CT) of the abdomen and pelvis was performed with 100 CC Omnipaque 350 intravenous contrast. Automated exposure control and iterative reconstruction technique were employe d. Exam dose: 972.45 mGy-cm total exam DLP. COMPARISON: None. FINDINGS: There is minimal discoid atelectasis or scarring at the lung bases. Heart size is within normal range. No pericardial or pleural effusion. Occasional scattered hepatic hypoattenuating lesions measuring up to 1.6 cm, likely cysts. Diffuse hepatic steatosis. Normal splenic size. No pancreatic mass lesion, calcification or ductal dilatation. No bile duct dilatation. The gallbladd er appears unremarkable. Normal morphology of the adrenal glands. There are some parapelvic left renal cysts. No renal space occupying mass lesion or urinary tract antonio culus or hydroureteronephrosis is noted otherwise. There is prostate enlargement, impressing the base of the urinary bladder and moderate diffuse bladde r wall thickening. The appendix measures up to 8.4 mm diameter, with thickened appearing wall. Recommend clinical correl ation for appendicitis. Minimal sigmoid colon diverticulosis; no evidence of diverticulitis. No bowel obstruction, bowel wall thickening, pneumatosis or intraperitoneal free air. Minimal grade 1 anterolisthesis at L4-5 due to degenerative changes apophyseal joints. Moderately sev ere degenerative disc disease at L5-S1. No suspicious osteolytic or osteoblastic lesions. IMPRESSION: 8.4 mm wide appendix with thickened wall, suggesting acute appendicitis. Recommend clini antonio correlation Minimal diverticulosis of sigmoid colon; no CT evidence of diverticulitis Prostate enlargement Left renal parapelvic cysts Hepatic steatosis, hepatic cysts Dr. Nava telephoned the report on 06/12/2023 at 1458 hours to Nurse Elisa. Reviewed, dictated and finalized at [facility]. Reviewed, dictated and finalized at [facility]. IMPRESSION: 8.4 mm wide appendix with thickened wall, suggesting acute appendi citis. Recommend clinical correlation Minimal diverticulosis of sigmoid colon; no CT evidence of diverticulitis Prostate enlargement Left renal parapelvic cysts Hepatic steatosis, hepatic cysts Dr. Nava telephoned the report on 06/12/2023 at 1458 hours to Nurse Elisa.
[2023-06-12 14:13] LABS: Estimated Glomerular Filt Rate > 60
== END 2023-06-12 13:41 ==
LOC: MICIMG 13:41
PROVIDERS: PCP Internal Medicine; Visit Provider Internal Medicine
DX: R10.9 Unspecified abdominal pain (principal); N40.0 Benign prostatic hyperplasia without lower urinary tract symptoms; K76.0 Fatty (change of) liver, not elsewhere classified; N28.1 Cyst of kidney, acquired
CPT/HCPCS: 74177; Q9967

== ENCOUNTER 2023-06-13 06:50 | Observation (INO) | payer BC, SELFPAY ==
[2023-06-13] VITALS (14 sets, daily range): BP systolic 124–177; BP diastolic 87–105; PULSE 69–102; RESP 16–20; TEMP 36.2–36.6; O2SAT 98–100
--- NOTE | 2023-06-13 06:59 | PC.NURSE ---
patient presented to triage with a bottle of water. Told by this nurse to remain NPO. patient continued to drink from water bottle
--- NOTE | 2023-06-13 07:49 | ED.ABDPAIN ---
HPI - Abdominal Pain General Chief Complaint: Abdominal Pain Stated Complaint: abd pain Time Seen by Provider: 06/13/23 07:26 History of Present Illness HPI narrative: 62-year-old male present to the emergency department for evaluation for 3 weeks abdominal pain. Patient initially described the pain is more epigastric and did describe associated bloating and cramping. Patient did have an outpatient CT scan yesterday that showed a large appendix that was concerning for acute appendicitis. Patient did not present to the ED last night but came this morning. Patient denies any previous abdominal surgical history but does have a history of CVA. Patient does take amlodipine, lisinopril and a baby aspirin daily. 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 She is a durable power consumer attorney. He has a set of twins ( a daughter and a son). 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 The patient used to smoke cigarettes from the age of 14 till 29 and then once again when he is 34 but has not smoked since. He drinks about a 12 pack of beer a week. The patient desires to be a full code. No marijuana or illicit drugs. Smoking status: Never smoker Alcohol intake: current Drinks per week: 14 Substance use: never Substance use type: does not use Do You Feel Safe in your Home?: Yes Lack of Transportation: No Lack of Food: Never True Current Housing: I Have Housing Concerned About Future Housing: No Difficulty Paying Gas/Electric Bills: No Difficulty Paying for Meds: No Currently Unemployed: No Education: Don't Know Difficulty w/ Childcare or Family Care: No Gender identity (if verbalized by the patient): Male Sexual Orientation (if Verbalized by the Patient): Straight or Heterosexual Spiritual care concerns: No Exam Narrative: APPEARANCE: Well appearing, no pain, no distress, well-nourished. HEAD: normocephalic, atraumatic. EYES: PERRLA/EOMI, conjunctivae clear. NOSE: Normal no drainage NECK: Supple. No adenopathy, no masses. RESPIRATORY: Airway patent, respirations nonlabored. Clear to auscultation bilaterally, no rales, rhonchi, wheezing. CARDIOVASCULAR: Regular rate and rhythm without murmurs rubs or gallops. ABDOMINAL: Some epigastric but also right lower quadrant tenderness to palpation. No rebound or guarding MUSCULOSKELETAL: Moves all extremities. Strength/ROM intact, No edema, No calf tenderness. NEURO: Alert. Cranial nerves II through XII intact. grossly intact PSYCHIATRIC: Normal affect/mood. Course Course Emergency Course: patient was admitted for appendicitis Vital Signs Vital signs: Vital Signs Temperature 97.2 F L 06/13/23 06:55
[2023-06-13 08:03] LABS: Basophils Percent Auto 0.6 % (0.2-1.2); Eosinophils Absolute Auto 0.2 K/mm3 (0-0.3); Eosinophils Percent Auto 4.3 % (0-4.4); Hematocrit 42.8 % (42.0-52.0); Hemoglobin 14.1 g/dL (14.0-18.0); Immature Granulocyte Absolute 0.02 K/mm3 (0.00-0.031); Immature Granulocyte Percent A 0.4 % (0-0.5); Lymphocytes Absolute Auto 0.53 K/mm3 (0.9-3.2); Lymphocytes Percent Auto 11.5 % (18.3-44.2); Mean Corpuscular HGB Conc 32.9 g/dl (32-36); Mean Corpuscular Hemoglobin 30.9 pg (26-34); Mean Corpuscular Volume 93.7 fl (80-100); Mean Platelet Volume 10.1 fl (7.4-10.4); Monocytes Absolute Auto 0.4 K/mm3 (0.1-0.6); Monocytes Percent Auto 8.4 % (2.6-8.5); Neutrophils Absolute Auto 3.5 K/mm3 (1.3-6.7); Neutrophils Percent Auto 74.8 % (45.5-73.1); Platelet Count Result 198 k/mm3 (150-375); Red Blood Count 4.57 M/mm3 (4.6-6.20); Red Cell Distribution Width 13.2 % (11.5-14.5); White Blood Count 4.6 K/mm3 (4.5-10.0)
--- NOTE | 2023-06-13 08:12 | PM.IMHP ---
H&P: HPI History of Present Illness Date/Time: 06/13/23 08:12 Chief Complaint: Abdomen pain Narrative: 62-year-old male with history of hypertension, CVA, present ED with a chief complaint of abdomen pain. Patient has been having intermittent abdomen pain above the weeks. pain is more epigastric,cramping.? Patient of patient CT scan yesterday that suggest possible acute appendicitis., and patient felt abdomen pain is getting worse in the morning, therefore patient came to ED for evaluation treatment. Patient denies chest pain, headache, focal weakness, short of breath, palpitation, dysuria. Upon arrival in ED, patient is afebrile, but has uncontrolled blood pressure 171/98, pulse ox 100% on room air, CBC and CMP unremarkable. CT scan in the ED suggests ?8.4 mm wide appendix with thickened wall, suggesting acute appendicitis. ER physician consulted general surgeon, and discussed with patient about patient condition. Patient prefer medical management. 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 She is a durable power claim attorney. He has a set of twins ( a daughter and a son). 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 The patient used to smoke cigarettes from the age of 14 till 29 and then once again when he is 34 but has not smoked since. He drinks about a 12 pack of beer a week. The patient desires to be a full code. No marijuana or illicit drugs. Smoking status: Never smoker Alcohol intake: current Drinks per week: 14 Substance use: never Substance use type: does not use Do You Feel Safe in your Home?: Yes Lack of Transportation: No Lack of Food: Never True Current Housing: I Have Housing Concerned About Future Housing: No Difficulty Paying Gas/Electric Bills: No Difficulty Paying for Meds: No Currently Unemployed: No Education: Don't Know Difficulty w/ Childcare or Family Care: No Gender identity (if verbalized by the patient): Male Sexual Orientation (if Verbalized by the Patient): Straight or Heterosexual Spiritual care concerns: No Meds Home Medications and Allergies Home Medications Medication Instructions Recorded Confirmed Type allopurinol 300 mg tablet 300 mg PO DAILY 06/01/20 06/13/23 History amlodipine 5 mg tablet (Norvasc) 5 mg PO QAM 30 days #30 tabs 06/04/20 06/13/23 Rx aspirin 81 mg tablet,delayed 81 mg PO QAM 30 days #30 tabs 06/04/20 06/13/23 Rx release atorvastatin 40 mg tablet 40 mg PO DAILY 30 days #30 tabs 06/04/20 06/13/23 Rx lisinopril 10 mg tablet 40 mg PO DAILY 11/29/20 06/13/23 History probenecid 500 mg tablet 500 mg PO DAILY 06/13/23 06/13/23 History Allergies Allergy/AdvReac Type Severity Reaction Status Date / Time No Known Allergies Allergy Verified 06/13/23 10:08 Vital Signs Vital Signs - 24 hr 06/13/23 06:55 Temperature 97.2 F L Pulse Rate 102 H Respiratory Rate 16 Blood Pressure 171/98 H Pulse Oximetry 100 Oxygen Delivery Room Air Exam Narrative: GENERAL: Pleasant, in no acute distress. Well-nourished. - EYES: EOMI. Anicteric. - HENT: Moist m
[2023-06-13 08:15] LABS: Lactic Acid Reflex 0.8 mmol/L (0.7-2.0)
[2023-06-13 08:16] LABS: Alanine Aminotransferase 44 U/L (6-50); Albumin Level 4.8 g/dL (3.5-5.1); Alkaline Phosphatase 90 U/L (38-126); Anion Gap 8 mmol/L (4-12); Aspartate Amino Transferase 36 U/L (17-59); Bilirubin,Total 0.6 mg/dL (0.2-1.3); Blood Urea Nitrogen 15 mg/dL (9-20); Calcium 10.4 mg/dL (8.4-10.2); Carbon Dioxide 25 mmol/L (22-30); Chloride 107 mmol/L (98-107); Estimated CRCL calculation 73 ml/min; Estimated Glomerular Filt Rate > 60; Glucose 109 mg/dL (65-110); Lipase 75 U/L (23-300); Potassium 4.5 mmol/L (3.4-5.0); Sodium 140 mmol/L (137-145)
[2023-06-13 08:35] LABS: INR 0.9; Prothrombin Time 12.3 Seconds (11.1-14.7)
[2023-06-13 08:36] LABS: Partial Thromboplastin Time 26.7 Seconds (22.3-36.8)
--- NOTE | 2023-06-13 09:41 | ADMGEN ---
This patient, Gucci Xiong, was admitted to [facility] Surg Room 306-02. Patient/family oriented to hospital policies and general routines including ID bracelet, bed and alarms, visiting hours, pain management, procedures, bathroom and other care routines, personal items, smoking policy, room service/diet, and visiting hours. Information on how to activate the Rapid Response Team has been discussed. Patient/Family are encouraged to report perceived risks to care and to ask questions if they do not understand what they are told or what they should do.
[2023-06-13] MEDS: DOCUSATE SODIUM 100 MG CAPSULE PO ×2 (10:56→17:15)
[2023-06-13] MEDS: PIPERACILLN/TAZ 3.375GM/NS50ML 3.375 GM/50 ML BAG IVPB ×3 (10:56→23:51)
--- NOTE | 2023-06-13 13:00 | PM.CNGS ---
Assessment and Plan Assessment and plan (1) Acute appendicitis: Code(s): K35.80 - Unspecified acute appendicitis Status: Acute Assessment and Plan: Exam is completely benign, CT suggestive of early acute appendicitis, long discussion with patient and regarding surgical management versus IV antibiotics and observation, patient elects the latter and will be admitted with IV antibiotics and serial exams, will start clears now (2) Epigastric abdominal pain: Code(s): R10.13 - Epigastric pain Status: Acute Assessment and Plan: likely completely to finding of appendicitis on CT, seems biliary in nature, will need outpatient workup including likely ultrasound and possible HIDA scan History of Present Illness Consult details Consult date: 06/13/23 Reason for consult: abdominal pain Requesting physician: Chris Cook MD Narrative: The patient is a 62-year-old male presenting to the emergency department after outpatient CT scan revealed acute uncomplicated appendicitis. The patient reports for the last month or so he has been experiencing intermittent upper abdominal cramping, pain associated with nausea, bloating. The patient was seen by his primary care physician and outpatient CT scan was obtained. The patient denies any lower abdominal pain. The patient does describe some discomfort, pressure in the right lower quadrant. He reports this is different from his previous complaints. The patient denies any fevers or chills. 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 She is a durable power workers compensation attorney. He has a set of twins ( a daughter and a son). 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 The patient used to smoke cigarettes from the age of 14 till 29 and then once again when he is 34 but has not smoked since. He drinks about a 12 pack of beer a week. The patient desires to be a full code. No marijuana or illicit drugs. Smoking status: Never smoker Alcohol intake: current Drinks per week: 14 Substance use: never Substance use type: does not use Do You Feel Safe in your Home?: Yes Lack of Transportation: No Lack of Food: Never True Current Housing: I Have Housing Concerned About Future Housing: No Difficulty Paying Gas/Electric Bills: No Difficulty Paying for Meds: No Currently Unemployed: No Education: Don't Know Difficulty w/ Childcare or Family Care: No Gender identity (if verbalized by the patient): Male Sexual Orientation (if Verbalized by the Patient): Straight or Heterosexual Spiritual care concerns: No Meds Home Medications and Allergies Home Medications Medication Instructions Recorded Confirmed Type allopurinol 300 mg tablet 300 mg PO DAILY 06/01/20 06/13/23 History amlodipine 5 mg tablet (Norvasc) 5 mg PO QAM 30 days #30 tabs 06/04/20 06/13/23 Rx aspirin 81 mg tablet,delayed 81 mg PO QAM 30 days #30 tabs 06/04/20 06/13/23 Rx release atorvastatin 40 mg tablet 40 mg PO DAILY 30 days #30 tabs 06/04/20 06/13/23 Rx lisinopril 10 mg tablet 40 mg PO DAILY 11/29/20 06/13/23 Hi
[2023-06-13 14:08] LABS: Appearance Urine Clear (Clear); Bilirubin Urine Negative (Negative); Blood Urine Negative (Negative); Color Urine Yellow (Yellow); Glucose Urine UA Negative (Negative); Ketones Urine Negative (Negative); Leukocyte Esterase Ur Negative LEU/UL (Negative); Nitrate Urine Negative (Negative); Protein Urine Negative (Negative); Urobilinogen Urine 0.2 mg/dL (<2.0); pH Urine 5.5 (5.0-9.0)
[2023-06-13 14:26] LABS: Add Urine Microscopic? NO
[2023-06-14 04:35] VITALS: BP 139/86; PULSE 61; RESP 18; TEMP 36.4; O2SAT 100
[2023-06-14] MEDS: PIPERACILLN/TAZ 3.375GM/NS50ML 3.375 GM/50 ML BAG IVPB (05:18)
--- NOTE | 2023-06-14 09:32 | WPDPN ---
Progress Note: A&P Assessment and Plan (1) Acute appendicitis: Code(s): K35.80 - Unspecified acute appendicitis Status: Acute Assessment and Plan: Patient responded non operative management for his acute appendicitis. He has a benign abdomen. His losses white blood count is normal today and he tolerates a regular diet I think he can be discharged home on some oral antibiotics for another 7 to 10 days. Will have follow-up in the office to see me as long as he be discharged today. I have recommended get a colonoscopy as an outpatient and then a repeat CT scan in a few weeks to make sure the appendix looks normal. Subjective Date/time seen: 06/14/23 09:32 Interval history: Patient is doing well today. Denies having any right lower quadrant pain. He is actually up in dressed and walking around the room looking like he wants to go home. CBC to look white blood cell count is pending today. He tolerated clear liquids. No fever. Exam GI: Other: The abdomen is soft and nondistended. No tenderness to deep palpation right lower quadrant the abdomen. No tenderness anywhere else in the abdomen. Abdominal exam is benign. Objective Data Vital Signs Vital Signs: Vital Signs - 24 hr 06/13/23 10:27 06/13/23 13:58 06/13/23 17:44 Temperature 36.6 C 36.3 C L Pulse Rate 77 82 82 Respiratory Rate 16 18 18 Blood Pressure 148/95 H 134/89 Pulse Oximetry 100 99 99 Oxygen Delivery Room Air 06/13/23 19:56 06/13/23 20:40 06/14/23 04:35 Temperature 36.3 C L 36.4 C Pulse Rate 69 61 Respiratory Rate 20 18 Blood Pressure 124/87 139/86 Pulse Oximetry 98 100 Oxygen Delivery Room Air 06/14/23 08:00 Temperature Pulse Rate Respiratory Rate Blood Pressure Pulse Oximetry Oxygen Delivery Room Air Intake/Output Intake/Output: Intake & Output 06/11/23 06/12/23 06/13/23 06/14/23 23:59 23:59 23:59 23:59 Intake Total 512 802 Balance 512 802 Meds/Results Medications: Active Medications Generic Name Dose Route Start Last Admin Trade Name Freq PRN Reason Stop Dose Admin Acetaminophen 650 mg 06/13/23 08:27 Acetaminophen 325 Mg Tablet PO Q4H PRN Mild Pain (1-3) or Fever Docusate Sodium 100 mg 06/13/23 09:00 06/14/23 08:09 Docusate Sodium 100 Mg Capsule PO Not Given BID [facility] Heparin Sodium (Porcine) 5,000 units 06/13/23 09:00 06/14/23 08:09 Heparin Sodium 5,000 Units/Ml Vial SUB-Q Not Given Q12HR CAROL Hydromorphone HCl 0.5 mg 06/13/23 08:11 Hydromorphone Hcl Inj (*Crx) 1 Mg/Ml Syr IV PUSH Q4H PRN Pain Rated 7-10 Piperacillin/Tazobactam/Dextrose 3.375 gm in 50 mls @ 100 mls/hr 06/13/23 17:00 06/14/23 05:18 Zosyn 3.375 Gm/Ns 50 Ml IVPB 100 mls/hr Q6HR CAROL Administration Ondansetron HCl 4 mg 06/13/23 08:11 Ondansetron Inj 4 Mg/2 Ml Vial IV PUSH Q4H PRN Nausea Labs Labs: Laboratory Results - last 24 hr 06/13/23 13:40 Urine Color Yellow Urine Appearance Clear Urine pH 5.5 Ur Specific [place] 1.020 Urine Protein Negative Urine Glucose (UA) Negative Urine Ketones Negative Ur Blood (Man) Negative Urine Nitrate Negative Urine Bilirubin Negative Urine Urobilinogen 0.2 Leukocyte Esterase Rfl Negative
[2023-06-14 10:17] LABS: Eosinophils Absolute Auto 0.2 K/mm3 (0-0.3); Eosinophils Percent Auto 3.8 % (0-4.4); Hematocrit 40.1 % (42.0-52.0); Hemoglobin 13.1 g/dL (14.0-18.0); Immature Granulocyte Absolute 0.02 K/mm3 (0.00-0.031); Immature Granulocyte Percent A 0.5 % (0-0.5); Lymphocytes Absolute Auto 0.46 K/mm3 (0.9-3.2); Mean Corpuscular HGB Conc 32.7 g/dl (32-36); Mean Corpuscular Hemoglobin 30.8 pg (26-34); Mean Corpuscular Volume 94.4 fl (80-100); Mean Platelet Volume 9.9 fl (7.4-10.4); Monocytes Absolute Auto 0.2 K/mm3 (0.1-0.6); Monocytes Percent Auto 5.5 % (2.6-8.5); Neutrophils Absolute Auto 3.3 K/mm3 (1.3-6.7); Neutrophils Percent Auto 78.2 % (45.5-73.1); Platelet Count Result 194 k/mm3 (150-375); Red Blood Count 4.25 M/mm3 (4.6-6.20); Red Cell Distribution Width 13.2 % (11.5-14.5); White Blood Count 4.2 K/mm3 (4.5-10.0)
--- NOTE | 2023-06-14 13:27 | P.DS_ITS ---
DS: Admitting Diagnosis Discharge Date 06/14/2023 Admitting Diagnosis acute appendicitis DS: Discharge Diagnosis Discharge Diagnosis (1) Acute appendicitis: Code(s): K35.80 - Unspecified acute appendicitis Status: Acute Assessment and Plan: * Improved with IV Zosyn (2) Epigastric abdominal pain: Code(s): R10.13 - Epigastric pain Status: Acute Assessment and Plan: * Sometimes radiates to chest with exertion * He will discuss cardiac testing with Dr. Singh (3) Hypertension: Code(s): I10 - Essential (primary) hypertension Status: Acute Assessment and Plan: * Controlled (4) Hyperlipidemia: Code(s): E78.5 - Hyperlipidemia, unspecified Status: Acute Assessment and Plan: * Continue statin (5) History of completed stroke: Code(s): Z86.73 - Personal history of transient ischemic attack (TIA), and cerebral infarction without residual deficits Status: Acute Assessment and Plan: * Continue ASA DS: Summary Hospital Course Hospital Course: Admitted to acute care with right lower abdominal pain. CT signs of acute appendicitis without rupture. He was treated conservatively with IV Zosyn. Improved dramatically. Was tolerating diet and up and about independently. He was seen by senior science consultant and was to follow up with surgery as outpatient. He was discharged with home course of antibiotics and was to return the emergency department should his symptoms recur. Time Spent with Patient Time attestation: Total time spent providing and/or coordinating discharge services: Exam Narrative: GENERAL: Pleasant, in no acute distress. Well-nourished. - EYES: EOMI. Anicteric. - HENT: Moist mucous membranes. - LUNGS: Clear to auscultation bilateral ly, no wheezing, rhonchi, or rales. - CARDIOVASCULAR: Regular rate and rhyth m. No murmur. No JVD. - ABDOMEN: Soft, right lower quadrant te nder and non-distended. No palpable masses. - EXTREMITIES: No edema. Peripheral puls es 2+. Non-tender. - NEUROLOGIC: No focal neurological defi cits. CN II-XII grossly intact. - PSYCHIATRIC: Awake, Alert and oriented x 3. Appropriate mood and affect. - SKIN: No rashes or lesions. Warm. - LYMPH: No cervical lymphadenopathy. DS: Data Data Completed and Pending Labs on day of discharge: Labs from last 24 hours 06/14/23 06/13/23 09:54 13:40 WBC 4.2 L RBC 4.25 L Hgb 13.1 L Hct 40.1 L MCV 94.4 MCH 30.8 MCHC 32.7 RDW 13.2 Plt Count 194 MPV 9.9 Immature Gran % (Auto) 0.5 Neut % (Auto) 78.2 H Lymph % (Auto) 11.0 L [place] % (Auto) 5.5 Eos % (Auto) 3.8 Baso % (Auto) 1.0 Lymph # (Auto) 0.46 L [place] # (Auto) 0.2 Eos # (Auto) 0.2 Baso # (Auto) 0.0 Abs Immat Gran (auto) 0.02 Absolute Neuts (auto) 3.3 Absolute Nucleated RBC 0.000 Nucleated RBC % 0.0 Urine Color Y
--- NOTE | 2023-06-14 13:27 | PM.DS ---
DS: Admitting Diagnosis Discharge Date 06/14/2023 Admitting Diagnosis acute appendicitis DS: Discharge Diagnosis Discharge Diagnosis (1) Acute appendicitis: Code(s): K35.80 - Unspecified acute appendicitis Status: Acute Assessment and Plan: Improved with IV Zosyn (2) Epigastric abdominal pain: Code(s): R10.13 - Epigastric pain Status: Acute Assessment and Plan: Sometimes radiates to chest with exertion He will discuss cardiac testing with Dr. Singh (3) Hypertension: Code(s): I10 - Essential (primary) hypertension Status: Acute Assessment and Plan: Controlled (4) Hyperlipidemia: Code(s): E78.5 - Hyperlipidemia, unspecified Status: Acute Assessment and Plan: Continue statin (5) History of completed stroke: Code(s): Z86.73 - Personal history of transient ischemic attack (TIA), and cerebral infarction without residual deficits Status: Acute Assessment and Plan: Continue ASA DS: Summary Hospital Course Hospital Course: Admitted to acute care with right lower abdominal pain. CT signs of acute appendicitis without rupture. He was treated conservatively with IV Zosyn. Improved dramatically. Was tolerating diet and up and about independently. He was seen by surgical training specialist and was to follow up with surgery as outpatient. He was discharged with home course of antibiotics and was to return the emergency department should his symptoms recur. Time Spent with Patient Time attestation: Total time spent providing and/or coordinating discharge services: Exam Narrative: GENERAL: Pleasant, in no acute distress. Well-nourished. - EYES: EOMI. Anicteric. - HENT: Moist mucous membranes. - LUNGS: Clear to auscultation bilaterally, no wheezing, rhonchi, or rales. - CARDIOVASCULAR: Regular rate and rhythm. No murmur. No JVD. - ABDOMEN: Soft, right lower quadrant tender and non-distended. No palpable masses. - EXTREMITIES: No edema. Peripheral pulses 2+. Non-tender. - NEUROLOGIC: No focal neurological deficits. CN II-XII grossly intact. - PSYCHIATRIC: Awake, Alert and oriented x 3. Appropriate mood and affect. - SKIN: No rashes or lesions. Warm. - LYMPH: No cervical lymphadenopathy. DS: Data Data Completed and Pending Labs on day of discharge: Labs from last 24 hours 06/14/23 06/13/23 09:54 13:40 WBC 4.2 L RBC 4.25 L Hgb 13.1 L Hct 40.1 L MCV 94.4 MCH 30.8 MCHC 32.7 RDW 13.2 Plt Count 194 MPV 9.9 Immature Gran % (Auto) 0.5 Neut % (Auto) 78.2 H Lymph % (Auto) 11.0 L [place] % (Auto) 5.5 Eos % (Auto) 3.8 Baso % (Auto) 1.0 Lymph # (Auto) 0.46 L [place] # (Auto) 0.2 Eos # (Auto) 0.2 Baso # (Auto) 0.0 Abs Immat Gran (auto) 0.02 Absolute Neuts (auto) 3.3 Absolute Nucleated RBC 0.000 Nucleated RBC % 0.0 Urine Color Yellow Urine Appearance Clear Urine pH 5.5 Ur Specific [place] 1.020 Urine Protein Negative Urine Glucose (UA) Negative Urine Ketones Negative Ur Blood (Man) Negative Urine Nitrate Negative Urine Bilirubin Negative Urine Urobilinogen 0.2 Leukocyte Esterase Rfl Negative Preliminary micro results at discharge 06/13/23 09:03 Blood Culture - Preliminary Blood 06/13/23 09:03 Blood Culture - Preliminary Blood Discharge Plan Discharge Consulting providers: Maricarmen Dennis; Douglas Short Discharging Clinician: Gino Nolen Patient Disposition: Home, Self-Care Activity: no straining Diet: as tolerated Discharge Instructions: Patient to call our office or return to the emergency room if he has any recurrent right lower quadrant abdominal pain. Otherwise follow-up in my office to see me in about 2 weeks. Take oral antibiotics as ordered. No activity restrictions no dietary restrictions. Patient Instructions: Antibiotic Form Stand Alone Forms: General Discharge Information Follow-up/[facility]
[2023-06-14 13:42] VITALS: BP 146/90; PULSE 68; RESP 16; TEMP 36.1; O2SAT 100
== END 2023-06-14 14:00 | disposition home or self-care (01) ==
LOC: ANHED 08:05 → ANH3MEDSUR 09:15
PROVIDERS: Surgery; Admitting Provider Hospitalist; Emergency Provider Emergency Medicine; PCP Internal Medicine; Visit Provider Internal Medicine
DX: K35.80 Unspecified acute appendicitis (principal); I10 Essential (primary) hypertension; E78.5 Hyperlipidemia, unspecified; M10.9 Gout, unspecified; F10.90 Alcohol use, unspecified, uncomplicated; Z87.891 Personal history of nicotine dependence; Z86.73 Personal history of transient ischemic attack (TIA), and cerebral infarction without residual deficits; Z79.82 Long term (current) use of aspirin; Z79.899 Other long term (current) drug therapy
CPT/HCPCS: 36415; 80053; 81003; 83605; 83690; 85025; 85610; 85730; 87040; 96365; 96366; 96376; 99285; A9270; G0378; J2543

== ENCOUNTER 2023-07-01 09:14 | Outpatient (CLI) | payer BC, SELFPAY ==
--- NOTE | ~2023-07-01 | US_ITS ---
US abdomen limited INDICATION: Epigastric pain PROCEDURE: Realtime right upper abdominal ultrasound. COMPARISON: No prior studies for comparison. FINDINGS: The pancreas is normal without focal mass or pancreatic ductal dilation. There is fatty in filtration of the liver. There are multiple cysts of the liver, largest measuring 1.7 cm. There is n ormal directional flow in the portal vein. The gallbladder is normal without stones, gallbladder wall thickening or pericholecystic fluid. Comm on bile duct measures 4 mm. No sonographic Del Toro's sign. IMPRESSION: 1: Fatty infiltration of the liver. Liver cysts measuring up to 1.7 cm. Reviewed, dictated and finalized at location B.
== END 2023-07-01 09:15 ==
LOC: MICIMG 09:15
PROVIDERS: PCP Surgery; Visit Provider Surgery
DX: K76.0 Fatty (change of) liver, not elsewhere classified (principal); K76.89 Other specified diseases of liver
CPT/HCPCS: 76705

== ENCOUNTER 2023-07-11 07:56 | Outpatient (CLI) | payer BC, SELFPAY ==
--- NOTE | ~2023-07-11 | NM_ITS ---
EXAMINATION: NM hepatobiliary w pharm DATE: 07/11/2023 12:02 INDICATION: Epigastric pain COMPARISON: None. TECHNIQUE: 2.9 mCi Tc-99m mebrofenin (Choletec) was administered intravenously. Scintigraphic images of the abdomen were obtained for one hour. 2 mcg sincalide (Kinevac) was administered by slow intrav enous infusion, and imaging was continued for 30 minutes. Gallbladder ejection fraction was calculate d by the technologist. FINDINGS: There is normal clearance of radiotracer from the blood pool. There is homogeneous tracer uptake by t he liver. Activity progresses to the gallbladder and bowel. The gallbladder ejection fraction (GBEF) is 87% (normal 10-90%, but most patient with gallbladder dysfunction have GBEF < 35% which does over lap with the normal range). IMPRESSION: 1. Normal hepatobiliary scan. Reviewed, dictated and finalized at location A.
== END 2023-07-11 07:57 | disposition home or self-care (01) ==
PROVIDERS: PCP Surgery; Visit Provider Surgery
DX: R10.13 Epigastric pain (principal)
CPT/HCPCS: 78227; A9537; J2805